=== PATIENT | female | born 1940 | race American Indian/Alaskan Native ===

== ENCOUNTER 2021-10-24 14:24 | Emergency (ER) | payer MEDICARE, OTHER ==
[2021-10-24 16:46] LABS: Eosinophils % (Auto) 0.4 % (0.0-4.3); Hematocrit 32.3 % (30.3-42.9); Hemoglobin 10.7 gm/dl (10.1-14.3); Lymphocytes # (Auto) 1.5 K/mm3 (1.2-5.4); Lymphocytes % (Auto) 31.8 % (13.4-35.0); Mean Corpuscular HGB Conc 33 % (30-34); Mean Corpuscular Volume 87 fl (79-97); Monocytes # (Auto) 0.4 K/mm3 (0.0-0.8); Monocytes % (Auto) 7.4 % (0.0-7.3); Platelet Count 215 K/mm3 (140-440); Red Blood Count 3.72 M/mm3 (3.65-5.03); Red Cell Distribution Width 14.7 % (13.2-15.2)
[2021-10-24 16:52] LABS: Bilirubin,Urine NEG (Negative); Blood,Urine NEG (Negative); Color,Urine Amber (Yellow)
[2021-10-24 17:04] LABS: Mucus,Urine 2+ /HPF
[2021-10-24 17:13] LABS: Calcium 9.3 mg/dL (8.4-10.2)
[2021-10-25] MEDS ORDERED: POTASSIUM CHLORIDE ER 20 MEQ TAB PO ONE (03:56)
[2021-10-25] MEDS ORDERED: SODIUM CHLORIDE 0.9% 1000 ML 1,000 ML IV ONE (03:59)
--- NOTE | 2021-10-25 04:17 | Emergency Department Report ---
ED General Adult HPI - General Chief complaint: Weakness Stated complaint: BED SORES Source: patient, family Mode of arrival: Ambulatory Limitations: Physical Limitation - History of Present Illness Initial comments: Patient is a 80-year-old female with history of Parkinson's disease brought in by daughter for evaluation of sacral wounds and generalized weakness with decreased appetite. Daughter states that patient usually sits at home and a sofa chair for prolonged periods of time. States that her brothers usually take care of her during the week. Denies any recent illness, fever or chills. The patient is ambulatory with a walker. Severity scale (0 -10): 3 - Related Data Previous Rx's Medication Instructions Recorded Last Taken Type Neomycin/Bacitracin/Polymyxinb 14 gm TP TID #1 10/25/21 Unknown Rx [Triple Antibiotic Ointment] cephALEXin [Keflex] 500 mg PO Q12HR #14 cap 10/25/21 Unknown Rx Allergies Allergy/AdvReac Type Severity Reaction Status Date / Time No Known Allergies Allergy Unverified 10/24/21 15:44 ED Review of Systems ROS: Stated complaint: BED SORES Other details as noted in HPI Comment: All other systems reviewed and negative Constitutional: weakness Respiratory: denies: cough, shortness of breath, wheezing Cardiovascular: denies: chest pain, palpitations Gastrointestinal: denies: abdominal pain, nausea, diarrhea Musculoskeletal: denies: back pain, joint swelling, arthralgia Skin: lesions Neurological: denies: headache Psychiatric: denies: anxiety, depression ED Past Medical Hx - Past Medical History Previous Medical History?: Yes Hx Hypertension: Yes Hx Dementia: Yes Additional medical history: irregular HR, CAD, Dementia, Parkinson - Surgical History Past Surgical History?: Yes - Medications Home Medications: Home Medications Medication Instructions Recorded Confirmed Last Taken Type Neomycin/Bacitracin/Polymyxinb 14 gm TP TID #1 10/25/21 Unknown Rx [Triple Antibiotic Ointment] cephALEXin [Keflex] 500 mg PO Q12HR #14 cap 10/25/21 Unknown Rx ED Physical Exam - General Limitations: Physical Limitation General appearance: alert, in no apparent distress - Head Head exam: Present: atraumatic, normocephalic - Respiratory Respiratory exam: Present: normal lung sounds bilaterally. Absent: respiratory distress - Cardiovascular Cardiovascular Exam: Present: regular rate, normal rhythm, normal heart sounds - GI/Abdominal GI/Abdominal exam: Present: soft. Absent: distended, tenderness - Rectal Rectal exam: Present: deferred - Back Exam Back exam: Present: other (Skin breakdown to sacral area with approximately 2.5 cm stage II ulcer to the left gluteal cleft) - Neurological Exam Neurological exam: Present: alert, oriented X3 - Psychiatric Psychiatric exam: Present: normal affect, normal mood - Skin Skin exam: Present: warm, dry, other (See above) ED Course Vital Signs 10/24/21 15:50 Temperature 98.8 F Pulse Rate 62 Respiratory 20 Rate Blood Pressure 104/67 [Right] O2 Sat by Pulse 98 Oximetry ED Medical Decision Making - Lab Data Result diagrams: 10/24/21 16:32 10/24/21 16:32 - Medical Decision Making Serum potassium 3.1. Patient given oral replacement. Creatinine 1.4. Glucose 145. CBC within normal limits. UA shows 23 WBCs. I discussed the etiology of patient's decubitus ulcers with the daughter and patient and encouraged her to avoid prolonged sitting and to change positions frequently to promote healing. Will discharge with triple antibiotic ointment and instructions for dressing. We will also prescribe Keflex for UTI. Critical care attestation.: If time is entered above; I have spent that time in minutes in the direct care of this critically ill patient, excluding procedure time. ED Disposition Clinical Impression: Decubitus ulcer, Urinary tract infection Disposition: 01 HOME / SELF CARE / HOMELESS Is pt being admited?: Yes Condition: Stable Instructions: Preventing Pressure Injuries, Urinary Tract Infection, Adult, [id number] Additional Instructions: Please follow-up with your regular doctor within 1 week. Remember to avoid prolonged sitting as this may worsen skin breakdown. Please do not hesitate to return if symptoms worsen.
[2021-10-25] MEDS ORDERED: SODIUM CHLORIDE 0.9% 500 ML 500 ML ONE (04:43)
[2021-10-25 06:17] VITALS: BP 146/79
--- NOTE | 2021-10-25 10:47 | Electrocardiograph Report ---
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
== END 2021-10-25 06:20 | disposition home or self-care (01) ==
LOC: ED 14:24
DX: L89.90 Pressure ulcer of unspecified site, unspecified stage (principal); N39.0 Urinary tract infection, site not specified; I10 Essential (primary) hypertension
CPT/HCPCS: 36415; 80048; 81001; 85025; 87086; 93005; 99283; J7040